=== PATIENT | male | born 1975 | race Caucasian/White ===

== ENCOUNTER → 2020-07-09 | Outpatient (CLI) | payer MEDICARE ==
[~2020-07-09] MED LIST: AMITIZA8 MCG PO; CHANTIX1 MG PO; DILAUDID 4 MG TA4 MG PO; IBUPROFEN600 MG PO; JARDIANCE25 MG PO; LISINOPRIL20 MG PO; METFORMIN HCL1000 MG PO; REMERON15 MG PO; TRULICITY0.75 MG/0. SQ; TYLENOL EXTRA500 MG PO; VENTOLIN HFA 66.7 GM INH; VIAGRA50 MG PO; ZYRTEC10 MG PO
[2020-07-09 13:46] LABS: HEMOGLOBIN 14.8 gm/dl (14.0-17.5); RED BLOOD COUNT 5.22 M/UL (4.20-5.50); WHITE BLOOD COUNT 13.9 K/UL (4.5-11.0)
[2020-07-09 14:04] LABS: BUN/CREATININE RATIO 32 (0-10)
== END ==
LOC: OPSV2 11:00
PROVIDERS: Orthopaedic Surgery
DX: Z01.812 Encounter for preprocedural laboratory examination (principal); Z01.810 Encounter for preprocedural cardiovascular examination; Z01.811 Encounter for preprocedural respiratory examination; M14.671 Charcot's joint, right ankle and foot; M86.9 Osteomyelitis, unspecified; R91.8 Other nonspecific abnormal finding of lung field; R00.0 Tachycardia, unspecified; I44.4 Left anterior fascicular block; I25.2 Old myocardial infarction; R94.31 Abnormal electrocardiogram [ECG] [EKG]
CPT/HCPCS: 36415; 71046; 80048; 83036; 85025; 85652; 86140; 93005

== ENCOUNTER 2020-07-14 09:03 | Inpatient (IN) | payer MEDICARE ==
[~2020-07-14] VITALS: Ht 182.9 cm; Wt 102.1 kg
[~2020-07-14 09:03] MED LIST changes: -AMITIZA8 MCG PO; -CHANTIX1 MG PO; -DILAUDID 4 MG TA4 MG PO; -IBUPROFEN600 MG PO; -JARDIANCE25 MG PO; -LISINOPRIL20 MG PO; -METFORMIN HCL1000 MG PO; -TYLENOL EXTRA500 MG PO; -VENTOLIN HFA 66.7 GM INH; -VIAGRA50 MG PO; -ZYRTEC10 MG PO
[2020-07-14] MEDS ORDERED: CHANTIX1 MG PO (09:38)
[2020-07-14] MEDS ORDERED: LISINOPRIL20 MG PO (09:39)
[2020-07-14] MEDS ORDERED: METFORMIN HCL1000 MG PO (09:39)
[2020-07-14] MEDS ORDERED: JARDIANCE25 MG PO (09:40)
[2020-07-14] MEDS ORDERED: DILAUDID 4 MG TA4 MG PO (15:39)
[2020-07-14] MEDS ORDERED: VENTOLIN HFA 66.7 GM INH (17:11)
[2020-07-14] MEDS ORDERED: AMITIZA8 MCG PO (17:12)
[2020-07-14] MEDS ORDERED: IBUPROFEN600 MG PO (17:12)
[2020-07-14] MEDS ORDERED: TYLENOL EXTRA500 MG PO (17:14)
[2020-07-14] MEDS ORDERED: ZYRTEC10 MG PO (17:14)
[2020-07-14] MEDS ORDERED: VIAGRA50 MG PO (17:16)
[2020-07-15 03:29] LABS: RED BLOOD COUNT 4.56 M/UL (4.20-5.50); WHITE BLOOD COUNT 13.1 K/UL (4.5-11.0)
[2020-07-15 03:34] LABS: HEMOGLOBIN 12.7 gm/dl (14.0-17.5)
[2020-07-15 03:58] LABS: BUN/CREATININE RATIO 23 (0-10)
[2020-07-16 06:29] LABS: HEMOGLOBIN 12.3 gm/dl (14.0-17.5); RED BLOOD COUNT 4.43 M/UL (4.20-5.50); WHITE BLOOD COUNT 13.4 K/UL (4.5-11.0)
[2020-07-16 07:00] LABS: BUN/CREATININE RATIO 33 (0-10)
== END 2020-07-16 13:11 | disposition home or self-care (01) | DRG 41 ==
LOC: OR 09:03 → M/S 16:15
PROVIDERS: ADMIT Orthopaedic Surgery
PROC: 0Y6H0Z2 Detachment at Right Lower Leg, Mid, Open Approach (ICD-10-PCS; principal; 2020-07-14 14:05)
DX: E11.610 Type 2 diabetes mellitus with diabetic neuropathic arthropathy (principal); M86.8X7 Other osteomyelitis, ankle and foot; E11.69 Type 2 diabetes mellitus with other specified complication; Z20.822 Contact with and (suspected) exposure to COVID-19; I10 Essential (primary) hypertension; F41.9 Anxiety disorder, unspecified; R00.0 Tachycardia, unspecified; F32.9 Major depressive disorder, single episode, unspecified; K59.00 Constipation, unspecified; Z89.431 Acquired absence of right foot; Z56.0 Unemployment, unspecified; Z83.3 Family history of diabetes mellitus; Z80.9 Family history of malignant neoplasm, unspecified; Z87.01 Personal history of pneumonia (recurrent)
CPT/HCPCS: 36415; 80048; 82962; 85025; 86850; 86900; 86901; 97116-GP-CQ; 97162; 97166; 97530; 97530-GP-CQ; J0690; J1100; J1170; J2001; J2250; J2405; J2704; J2710; J2795; J3010; J7030; J7120